=== PATIENT | male | born 1985 | race Caucasian/White ===

== ENCOUNTER → 2016-08-10 | Outpatient (CLI) | payer SELFPAY ==
[~2016-08-10] MED LIST: CIPRO 500MG TA500 MG PO; LEVAQUIN500 MG PO; LEVAQUIN750 MG PO; MINOCYCLINE HC100 M1 PO; MOTRIN 400MG.400 MG PO; NOMEDS XX; PHENERGAN W/CO473 ML PO; PREDNISONE 20MG20 MG PO; SEPTRA DS 800 M1 TAB PO; TESSALON PERLE100 M1 PO; [UNRECOGNIZED DRUG - OTHER] PO
--- NOTE | 2016-08-10 15:53 | RADIOLOGY REPORT PS360 ---
HAND-RT 3 VIEWS HISTORY: Right hand pain BILAT HAND PAIN ORDERING PHYSICIAN: Chad Verduzco MD PATIENT AGE: 30 years COMPARISON: None FINDINGS: There is a minimally displaced oblique fracture through the base of the distal phalanx of the fifth finger extending into the articular surface of the DIP joint. There is 2 mm dorsal displacement of the proximal fracture fragment. No other significant anomalies are evident. IMPRESSION: Minimally displaced intra-articular fracture involves the proximal aspect of the distal phalanx of the fifth finger
--- NOTE | 2016-08-10 15:54 | RADIOLOGY REPORT PS360 ---
HAND-LT-3 VIEWS HISTORY: Left hand pain BILAT HAND PAIN ORDERING PHYSICIAN: Chad Verduzco MD PATIENT AGE: 30 years COMPARISON: None FINDINGS: No fracture or dislocation. No lytic or blastic change. There is normal mineralization. The joint spaces are well-preserved. No significant degenerative/arthritic changes. No erosive changes evident. IMPRESSION: Negative left hand
== END ==
LOC: RAD 15:05
DX: M79.642 Pain in left hand (principal); M79.641 Pain in right hand